=== PATIENT | male | born 1985 | race Caucasian/White ===

== ENCOUNTER 2020-03-24 23:25 | Emergency (ER) | payer OTHER ==
[~2020-03-24] VITALS: Ht 175.3 cm; Wt 79.6 kg
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
[2020-03-25 00:04] LABS: BASO % 0 % (0-3); EOS % 0 % (0-3); HEMATOCRIT 48.9 % (39.0-53.0); HEMOGLOBIN 17.1 g/dL (13.0-17.5); LYMPH # 1.9 x10^3/uL (1.0-4.8); LYMPH % 14 % (24-48); MEAN CORPUSCULAR HEMOGLOBIN 32 pg (25-35); MEAN CORPUSCULAR HGB CONC 35 g/dL (31-37); MEAN CORPUSCULAR VOLUME 91 fL (79-100); MONO # 0.8 x10^3/uL (0.0-1.1); MONO % 6 % (0-9); NEUT # 10.8 x10^3/uL (1.8-7.7); NEUT % 80 % (31-73); PLATELET COUNT 217 x10^3/uL (140-400); RED BLOOD COUNT 5.36 x10^6/uL (4.30-5.70); WHITE BLOOD COUNT 13.6 x10^3/uL (4.0-11.0)
[2020-03-25 00:14] LABS: CALCIUM 8.9 mg/dL (8.5-10.1); GFR 86.6; POTASSIUM 4.2 mmol/L (3.5-5.1)
[2020-03-25] MEDS ORDERED: CONTRAST GIVEN. MC PRN (00:15)
[2020-03-25] MEDS ORDERED: IOHEXOL 300 MG/ML 100ML VIAL. IV ONE (00:15)
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
[2020-03-25] MEDS ORDERED: LIDOCAINE 2%/EPI 1:100,000 20 ML VIAL. INJ ONE (01:45)
[2020-03-25] MEDS ORDERED: IBUPROFEN 400 MG TABLET. PO ONE (02:30)
[2020-03-25] MEDS ORDERED: ACETAMINOPHEN 500 MG TABLET PO ONE (02:30)
[2020-03-25 03:07] VITALS: BP 142/91
== END 2020-03-25 03:10 | disposition home or self-care (01) ==
LOC: ER 23:25 → EEVIPCON 23:25 → ER 03-25 03:10
DX: S01.01XA Laceration without foreign body of scalp, initial encounter (principal); S11.81XA Laceration without foreign body of other specified part of neck, initial encounter; Y08.89XA Assault by other specified means, initial encounter; Y93.89 Activity, other specified; Y92.89 Other specified places as the place of occurrence of the external cause; Y99.8 Other external cause status
CPT/HCPCS: 12002; 36415; 70450; 70498; 72125; 80048; 85025; 99285; J3490; Q9967